=== PATIENT | female | born 1960 | race Caucasian/White ===

== ENCOUNTER 2017-03-04 11:34 | Emergency (ER) | payer MEDICARE, OTHER ==
--- NOTE | ~2017-03-04 | CR156 ---
[facility] A Service of [facility] RADIOLOGY TEXT RESULTS PATIENT: RAFAEL MEYER LOCATION: [facility] #: [id number] : 62 UNIT #: [id number] AGE: [address]: Sydni Marie APRN SEX: F ORDER DR: [id number] [facility] [address] [place], [place] [address] [id number] E MR#: [id number] Acc #: [id number] NAME: RAFAEL MEYER : 1960 SEX: F STUDY DATE/TIME: 03/04/2017 12:41 UNIT: [facility] ROOM: STUDY DESCRIPTION: CR Humerus Min 2 View Lt Attending Physician: Sydni Marie A.P.R.N. Ordering Physician: Ed Doctor [id number] [facility] Primary Care Physician: Primary Care Physician No MEDICAL IMAGING REPORT This report is preliminary unless electronic signature is present EXAM Left humerus 2 views, 03/04/2017 HISTORY Left humerus pain status post fall onto concrete on left shoulder last night. FINDINGS Two views of the left humerus demonstrate comminuted impacted fracture through the surgical neck of the left humerus. There is approximately 7.0 mm medial displacement of the distal fragment. There is also a vertical type fracture involving the greater tuberosity of the humeral head. No other fracture or dislocation is seen. There is no soft tissue abnormality. IMPRESSION 1. Impacted displaced fracture through the surgical neck of the proximal left humerus. Approximately 7.0 mm medial displacement of the distal fragment. 2. Comminuted fracture involving the lateral aspect of the humeral head in the region of the greater tuberosity. Dictated by... Jesus Faulkner M.D. THIS IS AN ELECTRONICALLY VERIFIED REPORT Jesus Faulkner M.D. at 03/05/2017 8:08 AM ALEX/karyn TD: 03/04/2017 13:41 JOB #: [id number] MEDICAL IMAGING REPORT [facility] A Service [facility] RADIOLOGY TEXT RESULTS PATIENT: RAFAEL MEYER LOCATION: [facility] #: [id number] : 62 UNIT #: [id number] AGE: [address]: Sydni Marie APRN SEX: F ORDER DR: Page 1 of 1 COPY
--- NOTE | ~2017-03-04 | CR210 ---
[facility] A Service of [facility] RADIOLOGY TEXT RESULTS PATIENT: RAFAEL MEYER LOCATION: [facility] : 62 UNIT #: [id number] AGE: [address]: Sydni Marie APRN SEX: F ORDER DR: [id number] [facility] [address] [place], [place] [address] [id number] E MR#: [id number] Acc #: [id number] NAME: RAFAEL MEYER : 1960 SEX: F STUDY DATE/TIME: 03/04/2017 12:32 UNIT: [facility] ROOM: STUDY DESCRIPTION: CR Ribs Uni 2 View W PA Ch Lt Attending Physician: Sydni Marie A.P.R.N. Ordering Physician: Ed Doctor [id number] [facility] Primary Care Physician: Primary Care Physician No MEDICAL IMAGING REPORT This report is preliminary unless electronic signature is present EXAM Chest and left ribs 5 views, 03/04/2017 HISTORY Left side chest and rib pain status post fall last night on concrete. FINDINGS The heart is top normal in size status post median sternotomy. The lungs are clear. There are no pleural effusions. Four additional views of the left ribs show no evidence of fracture. There is however a transverse fracture through the surgical neck of the left humerus with approximately 1.0 cm medial displacement of the distal fragment. IMPRESSION 1. No evidence of left rib fracture. 2. Transverse fracture which is displaced involving the surgical neck of the proximal left humerus. The distal fragment is displaced approximately 1.0 cm medially. 3. Borderline cardiac enlargement status post median sternotomy. Dictated by... Jesus Faulkner M.D. THIS IS AN ELECTRONICALLY VERIFIED REPORT Jesus Faulkner M.D. at 03/05/2017 8:08 AM Gaby TD: 03/04/2017 13:34 JOB #: [id number] MEDICAL IMAGING REPORT Page 1 of 1 COPY
--- NOTE | ~2017-03-04 | CR229 ---
[facility] A Service of [facility] RADIOLOGY TEXT RESULTS PATIENT: RAFAEL MEYER LOCATION: [facility] : 62 UNIT #: [id number] AGE: [address]: Sydni Marie APRN SEX: F ORDER DR: [id number] [facility] [address] [place], [place] [address] [id number] E MR#: [id number] Acc #: [id number] NAME: RAFAEL MEYER : 1960 SEX: F STUDY DATE/TIME: 03/04/2017 12:41 UNIT: [facility] ROOM: STUDY DESCRIPTION: CR Shoulder Min 2 View Lt Attending Physician: Sydni Marie A.P.R.N. Ordering Physician: Ed Doctor [id number] [facility] Primary Care Physician: Primary Care Physician No MEDICAL IMAGING REPORT This report is preliminary unless electronic signature is present EXAM Left shoulder 4 views, 03/04/2017 HISTORY Left shoulder pain status post fall onto concrete last night. FINDINGS Four views of the left shoulder demonstrate transverse impacted fracture through the surgical neck of the left humerus with approximately 7.0 mm medial displacement of the distal fragment. There is also a comminuted vertical type fracture involving the lateral aspect of the humeral head in the region of the greater tuberosity. No other fracture or dislocation is seen. The bones are normally mineralized. The left acromioclavicular joint is intact. IMPRESSION 1. Impacted transverse fracture through the surgical neck of the left humerus. Approximately 7.0 mm medial displacement of the distal fragment. 2. Comminuted fracture involving the lateral aspect of the humeral head in the region of the greater tuberosity. Dictated by... Jesus Faulkner M.D. THIS IS AN ELECTRONICALLY VERIFIED REPORT Jesus Faulkner M.D. at 03/05/2017 8:08 AM ALEX/karyn TD: 03/04/2017 13:43 JOB #: [id number] MEDICAL IMAGING REPORT [facility] A Service of [facility] RADIOLOGY TEXT RESULTS PATIENT: RAFAEL MEYER LOCATION: [facility] : 62 UNIT #: [id number] AGE: [address]: Sydni Marie APRN SEX: F ORDER DR: Page 1 of 1 COPY
== END 2017-03-04 15:20 | disposition home or self-care (01) ==
LOC: CED 11:34 → CFTX 11:34
DX: S42.212A Unspecified displaced fracture of surgical neck of left humerus, initial encounter for closed fracture (principal); S42.292A Other displaced fracture of upper end of left humerus, initial encounter for closed fracture; I11.9 Hypertensive heart disease without heart failure; I51.9 Heart disease, unspecified; F17.210 Nicotine dependence, cigarettes, uncomplicated; Z95.1 Presence of aortocoronary bypass graft; W01.0XXA Fall on same level from slipping, tripping and stumbling without subsequent striking against object, initial encounter; Y92.838 Other recreation area as the place of occurrence of the external cause
CPT/HCPCS: 71101; 73030; 73060; 96372; 99284; J2270